=== PATIENT | female | born 1970 | race Two or more races ===

== ENCOUNTER 2021-11-11 19:42 | Emergency (ER) | payer MEDICAID ==
[~2021-11-11] VITALS: Ht 165.1 cm; Wt 70.5 kg
[~2021-11-11 19:42] MED LIST: DIPH25CA85 PO; NOCURR
[2021-11-11 20:57] VITALS: BP 124/83
[2021-11-11] MEDS ORDERED: IBUPROFEN 600 MG TABLET PO ONE (21:30)
== END 2021-11-11 22:39 | disposition left against medical advice (07) ==
LOC: EMS 19:42
DX: M25.551 Pain in right hip (principal); M54.50 Low back pain, unspecified; Z88.2 Allergy status to sulfonamides; Z79.899 Other long term (current) drug therapy
CPT/HCPCS: 99282; Z7502; Z7610